=== PATIENT | male | born 1960 | race Caucasian/White ===

== ENCOUNTER 2023-09-15 13:53 | Emergency (ER) | payer OTHER, SELFPAY ==
[2023-09-15 13:59] VITALS: BP 141/80
[2023-09-15 14:29] LABS: % Basophils 0.7 % (0-2); % Eosinophils 3.3 % (0-6); % Immature Granulocytes 0.3 % (0-0.5); % Lymphocytes 37.7 % (20.5-51.1); Absolute Eosinophils 0.2 10^3/uL (0-0.7); Absolute Lymphocytes 2.3 10^3/uL (1.2-3.4); Absolute Monocytes 0.6 10^3/uL (0.1-0.6); Absolute Neutrophils 2.9 10^3/uL (1.4-6.5); Hemoglobin 13.9 g/dL (13.0-18.0); Mean Corp Hgb Conc. 35.6 g/dL (33.0-37.0); Mean Corpuscular Hgb 31.4 pg (27.0-31.0); Mean Platelet Volume 10.4 fL (7.4-10.4); Nucleated Red Blood Cells % 0 % (-); Platelet Count 185 10^3/uL (130-400); Red Blood Cell Count 4.43 10^6/uL (4.70-6.10); Red Cell Dist. Width 12.2 % (11.5-14.5)
[2023-09-15 14:47] LABS: ALT (SGPT) 31 U/L (0-50); AST (SGOT) 28 U/L (17-59); Alkaline Phosphatase 86 U/L (38-126); Blood Urea Nitrogen 23 mg/dl (9-20); Calcium 9.3 mg/dl (8.4-10.2); Carbon Dioxide 26 mmol/L (22-30); Chloride 107 mmol/L (98-107); Glucose 107 mg/dl (70-99); Sodium 138 mmol/L (135-145); Total Bilirubin 0.5 mg/dl (0.2-1.3); Total Protein 6.9 g/dl (6.3-8.2); eGFR > 60.00
[2023-09-15 14:54] LABS: Troponin I < 0.012 ng/ml
[2023-09-15 16:24] VITALS: BMI 26.5
[2023-09-15] MEDS: NSS 500 IV (16:24)
[2023-09-15 16:25] VITALS: BP 114/71; BP 119/73; BP 123/73; PULSE 76; PULSE 77; PULSE 79
[2023-09-15 16:26] VITALS: BP 119/73
[2023-09-15 17:27] VITALS: BP 110/73
[2023-09-15 18:01] LABS: Troponin I < 0.012 ng/ml
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
[2023-09-15 18:27] VITALS: BP 118/77
== END 2023-09-15 18:28 | disposition home or self-care (01) ==
LOC: EMR 13:53
PROVIDERS: Nurse Practitioner; EMERGENCY PHYSICIAN Emergency Medicine; FAMILY PHYSICIAN Family Medicine
DX: R55 Syncope and collapse (principal)
CPT/HCPCS: 99284; 96360; 80053; 84484; 85025; 93005